=== PATIENT | male | born 1960 | race Two or more races ===

== ENCOUNTER 2025-03-30 22:46 | Emergency (ER) | payer OTHER ==
[~2025-03-30] VITALS: Ht 167.6 cm; Wt 72.6 kg
--- NOTE | 2025-03-30 22:53 | NUR ---
SE RECIBE PTE ALERTA Y ORIENTADO X3 EN AMBULANCIA. REFIERE QUE ESTABA EN UN VUELO Y REFIRIO DOLOR DE PECHO, DOCTORA DE ANABELA ADMINISTRO 3 NITROGLYCERIN. ANABELA PARO EN AEROPUERTO DE CA PARA TRAER [facility]. AL MOMENTO DEL TRIAGE PTE PRESENTA BP EN 200/130 MMHG Y REFIERE DOLOR DE PECHO. CANALIZADO POR AMBULANCIA EN MANO IZQUIERDA CON ANGIO #22. SE REALIZA EKG Y SE PRESENTA A DR MARQUES. SE UBICA EN CAMA #1 DE AREA DE CRITICO CONECTADO A MONITOR CARDIACO Y OXIMETRIA DE PULSO CONTINUA.
[2025-03-30] MEDS ORDERED: CLEVIDIPINE BUTYRATE 50 MG/100 ML VIAL IV SCH (23:30)
[2025-03-30] MEDS ORDERED: LABETALOL HCL 20MG/4ML SYRINGE IV ONE (23:45)
[2025-03-30 23:50] LABS: BASO % 0.6 % (0.1-1.2); EOS # 0.03 (0.04-0.54); EOS % 0.9 % (0.7-7.0); HEMATOCRIT 34.1 % (40.1-51.0); HEMOGLOBIN 12.7 g/dL (13.7-17.5); LYMPH # 0.59 (1.18-3.74); LYMPH % 17.9 % (19.3-53.1); MEAN CORPUSCULAR HEMOGLOBIN 34.9 pg (25.6-32.2); MONO # 0.55 (0.24-0.82); NEUT # 2.09 (1.56-6.13); NEUT % 63.6 % (34.0-71.1); PLATELET COUNT 290 K/uL (163-369); RED BLOOD COUNT 3.64 M/uL (4.63-6.08)
[2025-03-30 23:54] LABS: MONO % 16.7 % (4.7-12.5)
[2025-03-31 00:13] LABS: ALBUMIN 3.9 gm/dL (3.4-5.0); BILIRUBIN TOTAL 0.86 mg/dL (0.3-1.2); CREATININE SERUM 0.91 mg/dL (0.70-1.30); GFR 83.61; GLOBULINA 4.2 G/DL (2.4-3.5); POTASSIUM 3.9 mEq/L (3.5-5.1); TOTAL PROTEIN 8.1 gm/dL (6.4-8.2)
[2025-03-31 00:30] LABS: PARTIAL THROMBOPLASTIN TIME 29.3 SECONDS (22.0-34.0); PROTHROMBIN TIME 10.9 SECONDS (9.0-11.5)
[2025-03-31 01:55] LABS: COVID-19 AG NEGATIVE (NEGATIVE)
[2025-03-31 02:24] LABS: INFLUENZA A AG NEGATIVE (NEGATIVE)
--- NOTE | 2025-03-31 03:35 | NUR ---
SE RECIBE A PTE EN UNIDAD DE CRITICO. PTE ALERTA Y ORIENTADO X3. SE CONECTA A MONITOR CARDIACO Y OXIMETRIA DE PULSO SE REALIZA VENOPUNCION EN MANO RT CON ANGIO 20. SE ADMINSITRA MEDICAMENTO TIMOTHY ORDEN MEDICA Y BAJO MEDIDAS ASEPTICAS.
--- NOTE | 2025-03-31 07:56 | NUR ---
SE RECIBE A PACIENTE ALERTA Y ORIENTADO X3 CONECTADO A MONITOR CARDIACO Y OXIMETRIA CONTINUA. CANALIZADO CON #20 EN RT ARM Y #18 EN LT ARM, PATENTES, LIBRES DE EDEMA Y ERITEMA Y BAJANDO CLEVIPREX 50/100 A 10ML/HR. EXTREMIDADES SUPERIORES SE OBSERVAN LIBRES DE EDEMA Y ERITEMA. ABDOMEN NO DISTENDIO, DEPRESIBLE Y CON PERISTALSIS PRESENTE. PACIENTE ORINA DE MANERA ESPONTANEA HACIENDO USO DE URINAL. EXTREMIDADES INFERIORES SE OBSERVAN LIBRES DE EDEMA Y ERITEMA. PACIENTE SE MANTIENE EN CAMA A NIVEL DE PISO JUNTO CON BARRANDAS ELEVADAS. PENDIENTE A CONSULTA MEDICA.
[2025-03-31 15:25] VITALS: BP 148/94; O2SAT 99
--- NOTE | 2025-03-31 15:33 | NUR ---
SE RECIBE PACIENTE MASCULINO ALERTA Y ORIENTADO X3, EN AREA DE CRITICO EN LA CAMA #1 CON BARANDAS ELEVADAS. CONECTADO A MONITOR CARDIACO Y OXIEMTRIA DE PULSO. AREA DE VENOPUNCION EN BRAZO JOSH CANALIZADO CON ANGIO #18 Y CON CLEVIPREX 50MG/ 100ML BAJANDO A 10ML/HR PATENTE PATRIC DE EDEMA Y ENROJECIMIENTO. PEDIENTE LA CONSULTA CON DR. JEWELL REZA. SE OBSERVA POR CAMBIOS.
[2025-03-31] MEDS ORDERED: IPRATROPIUM BROMIDE 0.5 MG/2.5 ML AMPUL.NEB IH SCH (18:35)
[2025-03-31] MEDS ORDERED: FUROsemide 20 MG/2 ML VIAL IV SCH (18:37)
[2025-03-31] MEDS ORDERED: ATORVASTATIN CALCIUM 40 MG TABLET PO SCH (18:37)
[2025-03-31] MEDS ORDERED: AZITHROMYCIN 500 MG in DEXTROSE 5 % IN WATER 250 ML IV SCH (18:37)
[2025-03-31] MEDS ORDERED: CEFTRIAXONE SODIUM 2,000 MG in 0.9 % SODIUM CHLORIDE 100 ML IV SCH (18:37)
[2025-03-31] MEDS ORDERED: METOPROLOL SUCCINATE 25 MG TAB.SR.24H PO SCH (18:39)
[2025-03-31] MEDS ORDERED: ACETAMINOPHEN 500 MG GEL..CAP PO PRN (18:45)
[2025-04-01] MEDS ORDERED: ENOXAPARIN SODIUM 40 MG/0.4 ML SYRINGE SUBCUTANEO SCH (09:00)
[2025-04-01] MEDS ORDERED: FAMOTIDINE/PF 20 MG in 0.9 % SODIUM CHLORIDE 8 ML IV PUSH SCH (09:00)
== END 2025-03-31 20:30 | disposition left against medical advice (07) ==
LOC: ER 22:46 → ICU-2 03-31 18:59 → ER 03-31 20:30 → ICU-2 03-31 20:30
PROVIDERS: Emergency Medicine
DX: R07.9 Chest pain, unspecified (principal); I11.0 Hypertensive heart disease with heart failure; I50.9 Heart failure, unspecified